=== PATIENT | female | born 1960 | race Caucasian/White ===

== ENCOUNTER → 2016-04-23 | Outpatient (CLI) | payer MEDICAID ==
[~2016-04-23] MED LIST: ACETAMINOPHEN500 M3 PO; BISOPROLOL 5MG T5 MG PO; CYANOCOBAL1000 MCG/M IM; DYAZIDE CAP (M1 EACH PO; ESTRADIOL1 MG PO; FLONASE 50 MCG16 GM; GABAPENTIN 100100 MG PO; GOOD NEIGHBOR P10 M1 PO; IBUPROFEN 600M600 MG PO; K-DUR 20MEQ TA20 MEQ PO; MICRO-K10 MEQ PO; PROVENTIL0.09 MG/A1 IH; SINUS TABLETS N1 TAB PO; TRAMADOL50 M1 PO; VENTOLIN H0.09 MG/AC IH; VITAMIN D31000 IU PO; ZOFRAN ODT4 MG PO
[2016-04-23 15:57] LABS: HEMOGLOBIN 14.8 g/dL (12.2-16.2); LYMPH # 1.3 K/mm3 (0.7-4.5); LYMPH % 24.5 % (10-50.0)
[2016-04-23 17:19] LABS: BUN 9 mg/dL (7-18); GFR (ESTIMATED) 104 ML/MIN (59-)
== END ==
LOC: LAB 15:39
PROVIDERS: Physician Assistant
DX: R09.1 Pleurisy (principal)

== ENCOUNTER 2016-08-02 11:37 | Emergency (ER) | payer MEDICAID ==
[~2016-08-02] VITALS: Ht 162.6 cm; Wt 71.7 kg
[~2016-08-02 11:37] MED LIST changes: -ZOFRAN ODT4 MG PO
--- NOTE | 2016-08-02 12:17 | Urgent Treatment Center Report ---
History of Present Issue Date/Time Seen by Provider 08/02/16 1206 Visit Reason Pt arrived:Walked Presenting Problem:PT C/O VOMITING AND DIARRHEA. ADVISES SHE HAS BEEN HAVING ISSUES WITH HER GALLBLADDER RECENTLY AND ADVISES THAT SHE IS SCHEDULED FOR THE HIDA SCAN TOMMORROW. DENIES ANY ABD PAIN Location if Accident: Onset of symptoms date/time:/ or onset unknown for:MEDICAL HX UNKNOWN Have you (or family members/close friends) recently traveled outside the [place]? N If Yes, where/when: Have you had exposure to infectious disease within the past month? TB? Other? Specify: Patient states that she is scheduled for a hida scan tomorrow states that she has been having nausea and vomiting for around 3 days. States that she has been recently diagnosed with gallbladder issues. Denies any abdominal pain but says that she has noticed that she is having some cramping in her legs and thinks that maybe her potassium level is messed up. ALLERGIES Coded Allergies: erythromycin base (04/17/16) Tetracyclines (Mild, KNOT IN STOMACH 08/18/15) Home Medications Reported Medications Loratadine 10 MG PO DAILY Fluticasone Propionate (Flonase 50 Mcg Nasal Elmo) 1 SPRAY NA BID Estradiol 1 MG PO DAILY ALBUTEROL (Ventolin Hfa) 1 PUFF IH Q6HP PRN BREATHING IBUPROFEN MICRONIZED (IBUPROFEN 600MG) 200 MG PO Q6H Acetaminophen (Acetaminophen Extra Strength) 500 MG PO Q6HP PRN PAIN BISOPROLOL FUMARATE (Bisoprolol 5MG) 10 MG PO DAILY Hydrochlorothiazide W/Triamter (Triamterene-Hctz 37.5-25 MG Cp) 1 CAP PO DAILY History Medical History General CAD? Yes Angina: No IN: Yes Hypertension? No Hyperlipidemia? No CHF? No DVT? No PE? No COPD? No Asthma? No Anemia? Yes GERD? No Gastric ulcers? No GI Bleed? No Hernia? No Thyroid Problems? No Hypothyroidism? No CVA? No Seizures? No Diabetes? No Insulin Dependent: No Renal Insuffiency? No UTI? No Stones? No BPH? No GB Disease: Yes Nephritic Syndrome? No Asplenia? No Hepatitis? No Sickle Cell Disease? No Arthritis? No Migraines? Yes Cataracts? No Glaucoma? No MRSA? No HIV? No TB? No Anxiety? Yes Depression? No Cancer? No Site: UTERUS More? No Immunization HX DT/Tetanus > 10 YRS Surgical Hx Previous Surgery?Y HYSTERECTOMY TUBAL LIGATION VASCULAR BYPASS Family History Family HX Diabetes Yes Hypertension No Hyperlipidemia No Cancer Yes TB No Social History Smoking Hx Smoker: Never Smoker Tobacco: No Alcohol Alcohol: No Review of Systems All Other Systems Reviewed and Negative Gastrointestinal nausea, vomiting Musculoskeletal other (cramping) Comment History of gallbladder issues and is scheduled for a hida scan tomorrow, states that she has had nause and vomiting for 3 days after she eats, states that she is also having some cramping in her legs and feet and thinks her potassium may be low Physical Exam Vital Signs Vital Signs Date Time Temp Pulse Resp B/P Pulse O2 O2 Flow FiO2 Ox Delivery Rate 08/02 1158 98.6 112 16 146/96 98 08/02 1142 98.6 112 16 146/96 98 General Appearance Patient appears ill, sitting in exam chair Respiratory Status Yes: trachea midline, chest symmetrical, non tender chest. No: respiratory distress. 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 No Results/Orders Laboratory Tests 08/02/16 1227: Sodium 139, Potassium 3.1 L, Chloride 100, Carbon Dioxide 26, BUN 9, Creatinine 0.7, Estimated Creat Clear 103, Estimated GFR (MDRD) 87, Glucose 140 H, Calcium 8.8, Total Bilirubin 0.6, AST 147 H, ALT 63, Alkaline Phosphatase 74, Total Protein 8.1, Albumin 4.0, Globulin 4.1 H, Albumin/Globulin Ratio 1.0 L Current Medication Orders Sig/Madeline Start time Last Medication Dose Route Stop Time Status Admin Potassium Chloride 20 MEQ ONCE ONE 08/02 1315 CAN PO 08/02 1316 Potassium Chloride 40 MEQ ONCE ONE 08/02 1315 AC 08/02 PO 08/03 1315 1314 Potassium Chloride 0 .STK-MED ONE 08/02 1313 DC PO Ondansetron HCl 0 .STK-MED ONE 08/02 1217 DC .ROUTE Ondansetron HCl 4 MG ONCE ONE 08/02 1215 DC 08/02 SL 08/02 1216 1225 Orders Procedure Date/time Status CHEM 12 PROFILE 08/02 1205 Complete Progress [facility] Progress Notes Date 08/02/16 Time 1310 Comment Family doctor Amna Sequeira contacted and given lab results, discussed treatment options for potassium of 3.1 advised to give patient 40MEQ today, have Hida scan tomorrow and follow up in clinic on Saturday Departure Departure Time of Disposition 1312 Disposition DC Home or Self Care(routine) Clinical Impression Primary Impression: Nausea & vomiting Qualifiers: Vomiting type: unspecified Vomiting Intractability: unspecified Qualified Code: R11.2 - Nausea with vomiting, unspecified Secondary Impressions: Hypokalemia Condition STABLE Referrals Derrick DURHAM,Darvin Quintanilla (Family) Patient Instructions DI for Hypokalemia, DI for Nausea -- Adult, Nausea and Vomiting-Adult Additional Instructions Drink plenty of Fluids Have Hida Scan in the morning as scheduled Follow up with family doctor on Saturday for results of test and recheck potassium Return to the ER if any chest pain, palpations or any worsening of symptoms Return to the [facility] if needed Discharge Counseling Counseled pt/family regarding diagnosis, test results, medications/RX, home care, follow up needs Prescriptions Current Visit Scripts Ondansetron (Zofran 4MG Odt) 4 MG PO Q6HP PRN NAUSEA AND VOMITING #20 TAB at 1316
[2016-08-02] MEDS ORDERED: ZOFRAN ODT4 MG PO (13:15)
[2016-08-02 13:29] VITALS: BP 146/96
== END 2016-08-02 13:29 | disposition home or self-care (01) ==
LOC: ER 11:37 → UTC 11:45
PROVIDERS: Nurse Practitioner
DX: R11.2 Nausea with vomiting, unspecified (principal); E87.6 Hypokalemia

== ENCOUNTER → 2016-08-03 | Outpatient (CLI) | payer MEDICAID ==
[~2016-08-03] MED LIST changes: +ZOFRAN ODT4 MG PO
--- NOTE | 2016-08-03 13:57 | RADIOLOGY REPORT PS360 ---
[facility] ([facility]) HISTORY: Right upper quadrant pain, abnormal ultrasound of the gallbladder GB SLUDGE ORDERING PHYSICIAN: EVELYN HELTON PATIENT AGE: 56 years COMPARISON: Skull bladder ultrasound 14 and 17 DOSE: 8.8 mCi technetium Choletec. Fatty meal was ingested. Pain was reported with the fatty meal FINDINGS: Homogeneous activity is present within the hepatic parenchyma. Activity is present in the gallbladder by 30 minutes. Activity is present in the small bowel by 10 minutes. The gallbladder ejection fraction is calculated to be 29% which is slightly low. The patient reported pain with the fatty meal ingestion. IMPRESSION: 1. No evidence of common or cystic duct obstruction. 2. Slightly low gallbladder ejection fraction with pain reported with fatty meal suggesting gallbladder dyskinesia
== END ==
LOC: RAD 09:55
DX: K82.8 Other specified diseases of gallbladder (principal)
CPT/HCPCS: A9537

== ENCOUNTER 2016-09-11 07:17 | Day surgery (SDC) | payer MEDICAID ==
[~2016-09-11] VITALS: Ht 165.1 cm; Wt 65.8 kg
[2016-09-11 09:38] VITALS: BP 123/81
== END 2016-09-11 08:50 | disposition home or self-care (01) ==
LOC: SDC 07:17
DX: Z53.9 Procedure and treatment not carried out, unspecified reason (principal)

== ENCOUNTER 2017-03-05 09:02 | Day surgery (SDC) | payer MEDICAID ==
--- NOTE | 2017-03-05 09:59 | Operative Note ---
Endoscopy Report Date: 03/05/17 Preoperative diagnosis: Epigastric pain Procedure Type of procedure: Esophagogastroduodenoscopy with biopsies Indications:Patient is a 56-year-old white female. She presents to the office for routine follow-up. She had originally been sent for possible gallbladder. She had nausea and epigastric pain. Gallbladder ultrasound revealed sludge and debris. HIDA scan with fatty meal revealed an ejection fraction of 29 percent. Due to her atypical symptoms I had performed upper endoscopy initially. This revealed some linear gastric erosions versus ulcerations and positive H. pylori. I had her undergo H. pylori therapy. For quite some time she was not taking proton pump inhibitors as there are issues with insurance approval. Follow-up stool for H. pylori was still positive and she underwent a repeat course of H. pylori therapy. Finally, over the past 6 weeks or so she has been on omeprazole. Overall her symptoms have improved somewhat but she still does have some epigastric pain described as heavy. Plan was made for follow-up upper endoscopy to ensure H. pylori eradication and healing of the gastric ulcers. Consent was obtained and patient was taken to the same-day surgery endoscopy procedure room. She was positioned in a lateral decubitus position. Adequate intravenous sedation was achieved with titration of Versed and fentanyl. Olympus endoscope was inserted via the oropharynx advanced into the esophagus. Esophagus appeared normal. Stomach was cannulated and insufflated and retroflexion revealed no evidence of any appreciable hiatal hernia. There is some mild diffuse gastritis. Gastric antral mucosal biopsy was obtained for CLOtest for H. pylori. Pylorus was traversed and within the duodenum duodenal biopsy was obtained. Gastric biopsy was obtained for histopathologic analysis. A couple biopsies were obtained at the gastroesophageal junction to rule out Carpio's. Endoscope was withdrawn. Findings 1. Gastritis Follow-Up Follow-Up: Follow up on biopsies and H. pylori status. If all of this was relatively unremarkable may repeat HIDA scan with actual CCK. Assuming she is still symptomatic. at 0914
[2017-03-05 13:41] VITALS: BP 117/79
== END 2017-03-05 10:28 | disposition home or self-care (01) ==
LOC: SDC 09:02
PROVIDERS: Surgery
PROC: 0DB68ZX Excision of Stomach, Via Natural or Artificial Opening Endoscopic, Diagnostic (ICD-10-PCS; 2017-03-05)
PROC: 0DB48ZX Excision of Esophagogastric Junction, Via Natural or Artificial Opening Endoscopic, Diagnostic (ICD-10-PCS; 2017-03-05)
PROC: 0DB98ZX Excision of Duodenum, Via Natural or Artificial Opening Endoscopic, Diagnostic (ICD-10-PCS; principal; 2017-03-05 09:30)
DX: K29.70 Gastritis, unspecified, without bleeding (principal); R10.13 Epigastric pain